=== PATIENT | male | born 1940 ===

== ENCOUNTER 2023-04-07 10:57 | Outpatient (AMB) | payer OTHER, SELFPAY ==
--- NOTE | 2023-04-07 11:03 | A.OFFVIS_ITS ---
Intake Vital Signs 04/07/23 11:19 Height 5 ft 7 in Weight 162 lb 2 oz BMI 25.4 BP 134/82 Blood Pressure Location Rt brachial Position Sitting Pulse 71 Pulse Source Pulse Oximeter Pulse Oximetry (%) 96 Oxygen Delivery Method Room Air Intake Visit Reasons: ENP-Cog neuro for dementia w/dist-lvm Intake Note: Pt presents to the office today with his son Robb for a new patient visit for Cog neuro for dementia w/dist. Patients son states that he is having trouble with his memory and has been having agressive behavior and hallucinations. Patients son states he sees people and situations that are not there. Patients son also states that Hayden has expressed suicidal thoughts as well. Allergies No Known Allergies Allergy (Verified 04/07/23 11:23) Medication List - Last Reconciled 04/07/23 by Sherrell Mcclellan MD albuterol sulfate mg inhalation donepezil 5 mg PO DAILY irbesartan 150 mg PO DAILY levothyroxine 112 mcg PO DAILY metoprolol succinate ER 100 mg PO DAILY nifedipine ER 60 mg PO DAILY quetiapine mg PO sitagliptin phosphate (Januvia) 50 mg PO DAILY warfarin mg PO HPI HPI Comments History of Present Illness Details 82y/o male comes for evaluation of cogni tive issues. He is accompanied by his son who helps with history. His memory issues started around 2016, 2017 - he was having trouble remembering phone numbers, where he was going, was getting lost while driving etc. It worsened in 2019 after he had a fall and had a hip replacement in October 2019 it worsened significantly. AFter surgery he started having hallucinations.The hallucinations are mostly visual and he did not have insight. Now he is paranoid- that his is having an affair with another man.He is very irritable, depressed, and wants a divorce. In the beginning his hallucinations were worse ta night but now he bear sit during daytime as well.He has excessive daytime sleepiness and he is awake during night. [facility] Medical History Vascular dementia with behavior disturbance Depression Asthma Diabetic retinopathy Atrial fibrillation Hypertensive heart disease HTN (hypertension) CKD (chronic kidney disease) Diabetic neuropathy Diabetes Dementia Surgical History History of hip replacement Social History (Updated 04/07/23 @ 12:55 by Sherrell Mcclellan MD) Household Members: Spouse Housing: House Alcohol intake: former Tobacco use type: Cigarette Review of Systems Const Reports fatigue, Reports frequent falls, Reports malaise and Reports weakness Eyes Reports blurry vision and Reports loss of vision Card Reports irregular heart rhythm Resp Reports cough and Reports wheezing Reports urinary frequency Musc Reports arthralgias Neuro Reports frequent falls, Reports loss of vision, Reports memory loss and Reports weakness Psych Reports depression and Reports memory loss Endo Reports fatigue Aller/Immun Reports wheezing Physical Exam Vital Signs: Last Vital Signs Pulse 71 04/07/23 11:19 BP 134/82 04/07/23 11:19 Pulse Ox 96 04/07/23 11:19 Oxygen Delivery Method Room Air 04/07/23 11:19 BMI result Body Mass Index 25.4 Const General: cooperative, healthy appearing and no acute distress Nutritional Appearance: average body habitus Orientation/consciousness: oriented to person Neuro Other: Gait- unable to walk without support General: oriented to person, tone normal and moves all extremities Cranial nerves: Yes Bilaterally intact EOM present, Yes Nystagmus not present, Yes Normal facial strength present and Yes Midline tongue present Cognition (Neuro): abnormal cognition Motor exam (neuro): Normal motor muscle tone present throughout Deep tendon reflexes (DTR's): Right triceps reflex intensity grade: 1+, Left triceps reflex intensity grade: 1+, Rt Biceps (C5, C6): 1+, Left biceps reflex intensity grade: 1+, Right brachioradialis reflex intensity grade: 1+, Left brachioradialis reflex intensity grade: 1+, Right patellar reflex intensity grade: 1+ and Left patellar reflex intensity grade: 1+ Orientation What is the (year) (season) (date) (day) (month)?: season, day and month Where are we (state) (county) (town or city) (hospital) (floor)?: state, town or city and hospital/clinic Registration Name of 3 unrelated objects clearly and slowly, then ask patient to repeat all 3 of them. (1st repeat determines score. Make sure they can repeat all three): object 1, object 2 and object 3 Attention & Calculation (CHOOSE ONE) Spell WORLD backwards (DLROW): 3 letters Language Show patient a wristwatch & ask what it is. Repeat for pencil.: watch and pencil Ask the patient to repeat the phrase 'No ifs, ands, or buts' after you.: correct Ask the patient to 'take a piece of paper with their right hand' 'fold paper in half' 'place paper on floor': take paper in right hand, fold paper in half and place paper on floor Print the sentence 'CLOSE YOUR EYES' on a piece. If patient actually closes eyes then score.: followed written direction Give patient a blank piece of paper & ask to write a sentence. Score if it contains a noun & verb.: sentence contains subject and verb Ask patient to copy figure of intersecting pentagons exactly. Score if all 10 angles & 2 intersects are included.: all 10 angles present & 2 are intersected Score Score: 21 Assessment & Plan Assessment & Plan (1) Vascular dementia with behavior disturbance: Code(s): F01.518 - Vascular dementia, unspecified severity, with other behavioral disturbance Plan MRI report from [facility] for review I will trial patient on Namenda - donepezil 7/10mg qd Continue quetiapine 100mg qhs The diagnosis was explained in detail to the patients daughter and son. will consider cognitive therapy. Orders: Orders Vitamin B12 and Folate Today F03.90 - Unspecified dementia, unspecified severity, without behavioral disturbance, psychotic disturbance, mood disturbance, and anxiety Erythrocyte Sedimentation Rate Today F03.90 - Unspecified dementia, unspecified severity, without behavioral disturbance, psychotic disturbance, mood disturbance, and anxiety Medications: New sitagliptin phosphate (Januvia) 50 mg PO DAILY memantine-donepezil 01/07// mg-10 mg ER PO PER PKG DIR 28 ea 0RF quetiapine 100 mg PO BEDTIME Coding Level of Care Code New Pt Level 4 (22144) Diagnoses Vascular dementia with behavior disturbance F01.518
[2023-04-07 11:19] VITALS: BP 134/82; PULSE 71; O2SAT 96; BMI 25.4
== END 2023-04-07 12:59 | disposition home or self-care (01) ==
PROVIDERS: PCP Internal Medicine; Visit Provider Psychiatry & Neurology Neurology
DX: F01.518 Vascular dementia, unspecified severity, with other behavioral disturbance (principal)
CPT/HCPCS: 99204

== ENCOUNTER → 2023-04-07 10:57 | Outpatient (BNVA) | payer OTHER, SELFPAY | PROVIDERS: PCP Internal Medicine; Visit Provider Psychiatry & Neurology Neurology ==